=== PATIENT | female | born 1980 | race Caucasian/White ===

== ENCOUNTER 2017-12-04 07:30 | Day surgery (SDC) | payer OTHER ==
[2017-11-26 15:35] VITALS: BMI 30.7
[2017-12-04] MEDS ORDERED: TOBRA 0.3%/DEXAMETH 0.1% OPHTHALMIC SUSP 2.5 ML BTL OS SCH (08:00)
[2017-12-04] MEDS: TOBRA 0.3%/DEXAMETH 0.1% OPHTHALMIC SUSP 2.5 ML BTL ONE ×2 (08:45→09:15)
[2017-12-04] MEDS ORDERED: MIDAZOLAM HCL 2 MG/2 ML SINGLE DOSE VIAL ONE (09:14)
[2017-12-04] MEDS ORDERED: EPI-SHUGARCAINE (EPINEPHRINE 0.025% & LIDOCAINE-PF 0.75%) 4ML ONE (10:26)
[2017-12-04] MEDS ORDERED: BSS (NA/CA/MG/K) BALANCED SALT SOLUTION OPHTH SOLN 15 ML BOTTLE ONE ×2 (10:26→10:30)
[2017-12-04] MEDS ORDERED: POVIDONE-IODINE 5% OPHTHALMIC PREP 30 ML SOLUTION ONE (10:26)
[2017-12-04] MEDS ORDERED: LIDOCAINE HCL 2% JELLY 10 ML CARTRIDGE ONE (10:27)
[2017-12-04] MEDS ORDERED: TETRACAINE 0.5% OPHTH SOLN 2 ML BOTTLE ONE (11:07)
[2017-12-04] MEDS ORDERED: ONDANSETRON 4 MG/2 ML VIAL ONE (11:48)
[2017-12-04] MEDS ORDERED: ACETAMINOPHEN 325 MG TABLET (FP) PO PRN (12:59)
[2017-12-04] MEDS ORDERED: ACETAMINOPHEN 325 MG TABLET (FP) ONE (13:32)
[2017-12-04 14:11] VITALS: BP 124/78; PULSE 81; TEMP 98
--- NOTE | 2017-12-04 14:39 | OP ---
DATE OF OPERATION: 12/04/2017 PREOPERATIVE DIAGNOSIS: Pterygium, left eye. POSTOPERATIVE DIAGNOSIS: Pterygium, left eye. PROCEDURE: Pterygium excision with free conjunctival autograft, left eye. SURGEON: Omi Maldonado MD [employer] ADVISOR: Carli López MD ANESTHESIA: Topical with sedation. ESTIMATED BLOOD LOSS: Less than 1 mL. COMPLICATIONS: None. SPECIMENS: Pterygium, left eye. PROCEDURE IN DETAIL: The patient was identified in the holding area. After all risks, benefits and alternatives of the procedure had been explained to the patient, informed consent was obtained. The left eye was marked with a marking pen. The patient then entered the operating room on an eye stretcher. After a formal time-out was performed, topical tetracaine eye drops were instilled in the left eye. The left eye was then prepped and draped in the usual sterile fashion. An eye speculum was placed beneath the eyelid of the left eye. Attention was turned to the nasal conjunctiva where a 7-mm x 8-mm pterygium was noted, to be marked off with a marking pen. Superior inferior traction sutures were placed using 6-0 silk and tied together using a hemostat. Then, the nasal pterygium was avulsed and completely excised from the cornea as well as the conjunctiva, and freed up from the scleral bed using 0.12 forceps and Emory scissors as well as a crescent blade. Hemostasis was achieved using wet electrocautery. Then, all excess Ten[place] capsule was excised to make the scleral bed completely flat. When the conjunctiva was noted to be lying completely flat on the scleral bed, attention was turned to the superior and temporal conjunctiva, where an 8-mm x 7-mm free conjunctival autograft was created and rotated [id number] onto the recipient scleral bed. Then, the donor free conjunctival autograft was sutured to the limbus as well as to the recipient conjunctiva using interrupted 7-0 Vicryl sutures. Once the free conjunctival autograft was noted to be completely secure and in perfect position, antibiotic eye drops and ointment were administered to the left eye. Throughout the case, there was a red reflex present, the cornea was adequately hydrated and kept moist, and the eye had an adequate pressure. The eyelid speculum was removed from the left eye. The left eye was patched and shielded. The patient tolerated the procedure well and left the operating room in stable condition to follow up in the [facility] tomorrow morning at 9 a.m. Of note, before the eyelid speculum was removed from the left eye, the traction sutures were completely removed. OMI MALDONADO M.D. [id number]
--- NOTE | 2017-12-06 15:08 | PATH ---
Surgical Pathology Report Patient Name: BISHOP GARNICA [facility]. Rec. #: [id number] /Age/Gender: 1980 (Age: 37) / F Account: [id number] Location: [facility] Taken: 12/04/2017 Received: 12/04/2017 Reported: 12/06/2017 Physicians: Omi Sanchez Specimen(s) Received PTERYGIUM OF LEFT EYE Clinical History Pterygium Final Diagnosis EYE, LEFT, PTERYGIUM, EXCISION: PTERYGIUM. Electronically Signed Marlee Casey M.D. Gross Description Received in formalin, labeled "pterygium of left eye" is a boone, irregular portion of soft tissue measuring 0.4 cm. in greatest dimension. The specimen is submitted in toto in one cassette. 12/05/2017 [facility]2017
== END 2017-12-04 14:08 | disposition home or self-care (01) ==
LOC: FASU 07:30
PROVIDERS: ATTEND Ophthalmology
PROC: 08U107Z Supplement of Left Eye with Autologous Tissue Substitute, Open Approach (ICD-10-PCS; principal; 2017-12-04 11:10)
DX: H11.002 Unspecified pterygium of left eye (principal)
CPT/HCPCS: 84703; 88304-TC

== ENCOUNTER → 2021-12-29 | Day surgery (SDC) | payer OTHER ==
[2021-12-26 13:28] VITALS: BMI 30.4
[~2021-12-29] MED LIST: BUPIVACAINE HCL/EPINEPHRINE/PF 30 ML VIAL IJ ONE; DEXAMETHASONE SOD PHOSPHATE 4 MG/1 ML VIAL ONE; MIDAZOLAM HCL 2 MG/2 ML SINGLE DOSE VIAL ONE; ONDANSETRON 4 MG/2 ML VIAL IVPUSH PRN; ONDANSETRON 4 MG/2 ML VIAL ONE; PROMETHAZINE HCL 25 MG/1 ML VIAL IVPUSH PRN; PROPOFOL 20 ML ONE; ceFAZolin SODIUM 1 GM VIAL ONE; oxyCODONE HCL 5 MG TABLET PO ONE; oxyCODONE HCL 5 MG TABLET PO PRN
[2021-12-29 06:52] VITALS: TEMP 97.9
[2021-12-29 10:12] VITALS: BP 113/57; PULSE 78; RESP 16
== END | disposition home or self-care (01) ==
LOC: FASU 06:01
PROVIDERS: ATTEND Plastic Surgery
PROC: 0HX5XZZ Transfer Chest Skin, External Approach (ICD-10-PCS; 2021-12-29)
PROC: 0HBT0ZZ Excision of Right Breast, Open Approach (ICD-10-PCS; principal; 2021-12-29 08:19)
DX: D17.1 Benign lipomatous neoplasm of skin and subcutaneous tissue of trunk (principal)
CPT/HCPCS: 81025; 88307-TC